=== PATIENT | female | born 1980 | race Caucasian/White ===

== ENCOUNTER 2024-08-18 08:02 | Emergency (ER) | payer OTHER, SELFPAY ==
[2024-08-18 08:04] VITALS: BP 151/106
[2024-08-18 08:18] VITALS: BP 155/96
[2024-08-18 08:19] VITALS: BMI 24.8
--- NOTE | 2024-08-18 08:23 | ED.GENMED ---
History of Present Illness
General
Chief Complaint: Chest Problem
Time Seen by Provider: 08/18/24 08:10
History of Present Illness
History of Present Illness:
43-year-old otherwise healthy female presents to the emergency department for evaluation of chest pain beginning yesterday. Pain is described as an aching pressure to the central chest, nonradiating. Seems to be worse when supine or when exerting
herself. Also pleuritic in nature. Is not radiate to the back of the shoulders. No associated fevers or chills. Notes that approximate 2 weeks ago she dealt with URI symptoms that have mostly resolved with the exception of a mild dry cough.
Denies any recent prolonged immobilization or surgeries. Does not take any exogenous estrogen.
Review of Systems
Review of Systems
Allergies reviewed?: Yes
All Other Systems: ROS reviewed and negative except as documented in HPI and ROS
Phy Exam
Physical Exam
Physical Exam:
GEN: Well appearing, NAD, WDWN
HEENT: Oral mucosa moist, no scleral icterus
Cardiac: Regular rate Rhythm, no murmurs
Lung: No respiratory distress, no tachypnea, Lungs clear to auscultation bilaterally
MSK: No gross deformity or injuries
Skin: Good color, no pallor or jaundice, no rashes
Neuro: AO x3, moves all extremities freely
Psych: Calm, cooperative
Course
Orders/Labs/Results
Orders:
Orders
08/18/24 08:06
ECG [Electrocardiogram (*1)] Urgent
Reason for Study: Chest Pain
EKG- Treatment ONCE
08/18/24 08:26
Complete Blood Count/With Diff Urgent
Comprehensive Metabolic Panel Urgent
D-Dimer Urgent
HCG, Serum Qualitative Screen Urgent
Comment: ADD ON
Troponin I Urgent
08/18/24 08:33
Add On- LAB Urgent
Tests Added?: hcg qual
08/18/24 09:46
Ketorolac [Toradol] 15 mg IV NOW STA
CR Chest - 2 Views Urgent
Comment:
Reason For Exam: chest pain
Abnormal Lab Results
08/18/24
08:26
MCH 32.5 H pg
(27.0-31.0)
RDW 11.2 L %
(11.5-14.5)
08/18/24 08:26
08/18/24 08:26
Vital Signs
Initial and Last Documented VS:
Initial Vital Signs
Temp Pulse Resp BP Pulse Ox
98.0 F 90 16 151/106 95
08/18/24 08:04 08/18/24 08:04 08/18/24 08:04 08/18/24 08:04 08/18/24 08:04
Last Documented Vital Signs
Temp Pulse Resp BP Pulse Ox
98.0 F 75 19 123/97 97
08/18/24 08:04 08/18/24 10:11 08/18/24 10:11 08/18/24 10:11 08/18/24 10:11
MDM/Problems Addressed
MDM/Problems Addressed:
Patient's workup is reassuring although her EKG is abnormal with no priors for comparison. D-dimer and troponin are negative. Do not suspect ACS given her age and lack of risk factors. D-dimer reassuring against PE. Her symptoms did improve with
NSAID administration thus this may be a pleurisy versus costochondritis in the setting of recent viral URI. Discussed supportive care
Comment
Comment:
EKG independently interpreted by me shows normal sinus rhythm at a rate of 77 with inferior and high lateral ST depressions as well as T wave inversions in the high lateral leads, no priors for comparison
*Critical Care Note
Total Time (30-74mins, 75-104mins- exclusive of procedures): Not Applicable
ED Attending Note
-
Portions of this chart may have been created with voice recognition software.� Occasional wrong word or��sound alike� substitutions may have occurred due to the inherent limitations of voice recognition software.
Discharge Plan
Departure
Patient Disposition: Home (Routine Discharge)
Date of Disposition: 08/18/24
Time of Disposition: 10:09
Patient with high blood pressure during this ER visit?: No
Discharge Problem:
Atypical chest pain
Instructions: Chest Pain PCP Follow Up
Referrals:
Hazel Aguillon DO [Family Provider] -
Activity Restrictions/Additional Instructions:
As we discussed your EKG is abnormal however we have no prior EKGs for comparison. Please consider following up with your primary care physician or a event specialist product demonstrator to discuss this further
Interventions
Interventions:
*Risk Screen - Suicide Last Done: 08/18/24 10:22
*General Assessment Last Done: 08/18/24 08:19
*Neglect/Abuse Screening Last Done: 08/18/24 10:22
*ED- Fall Risk Assessment Last Done: 08/18/24 08:19
*ED COVID-19 Vaccine History Last Done: 08/18/24 08:19
*Nursing Disposition Last Done: 08/18/24 10:22
ED- Cardiac Assessment Last Done: 08/18/24 08:19
ED- Pulmonary Assessment Last Done: 08/18/24 08:19
Discharge Date and Time
Discharge Date/Time: 08/18/24 10:23
Print Language: DOMINICAN
[2024-08-18 08:38] LABS: % Basophils 0.6 % (0-2); % Immature Granulocytes 0.4 % (0-0.5); % Lymphocytes 30.9 % (20.5-51.1); % Monocytes 8.5 % (1.7-9.3); % Neutrophils 57.6 % (42.2-75.2); Absolute Eosinophils 0.1 10^3/uL (0-0.7); Absolute Lymphocytes 2.1 10^3/uL (1.2-3.4); Absolute Monocytes 0.6 10^3/uL (0.1-0.6); Absolute Neutrophils 3.9 10^3/uL (1.4-6.5); Hematocrit 40.7 % (37.0-47.0); Hemoglobin 14.3 g/dL (12.0-16.0); Mean Corp Hgb Conc. 35.1 g/dL (33.0-37.0); Mean Corpuscular Hgb 32.5 pg (27.0-31.0); Mean Corpuscular Volume 92.5 fL (81.0-99.0); Mean Platelet Volume 10.1 fL (7.4-10.4); Nucleated Red Blood Cells % 0 %; Platelet Count 284 10^3/uL (130-400); Red Cell Dist. Width 11.2 % (11.5-14.5); White Blood Cell Count 6.8 10^3/uL (4.8-10.8)
[2024-08-18 08:50] LABS: D-Dimer 0.46 ug/mlFEU (0.00-0.50)
[2024-08-18 08:51] LABS: ALT (SGPT) 16 U/L (0-35); AST (SGOT) 19 U/L (14-36); Albumin 4.5 g/dl (3.5-5.0); Alkaline Phosphatase 71 U/L (38-126); Blood Urea Nitrogen 8 mg/dl (7-17); Calcium 9.4 mg/dl (8.4-10.2); Carbon Dioxide 23 mmol/L (22-30); Chloride 106 mmol/L (98-107); Estimated Creatinine Clearance 102 ml/min; Glucose 85 mg/dl (70-99); Potassium 3.6 mmol/L (3.5-5.1); Sodium 141 mmol/L (135-145); Total Bilirubin 0.7 mg/dl (0.2-1.3); Total Protein 7.1 g/dl (6.3-8.2); eGFR > 60.00
[2024-08-18 09:00] VITALS: BP 134/120
[2024-08-18 09:01] LABS: Troponin I < 0.012 ng/ml
[2024-08-18 09:02] LABS: HCG, Serum Qualitative Screen Negative
[2024-08-18] MEDS: TORADOL 15 MG IV (10:05)
[2024-08-18 10:11] VITALS: BP 123/97
== END 2024-08-18 10:23 | disposition home or self-care (01) ==
LOC: EMR 08:02
PROVIDERS: Physician Assistant; EMERGENCY PHYSICIAN Emergency Medicine; FAMILY PHYSICIAN Family Medicine
DX: R07.89 Other chest pain (principal); R05.9 Cough, unspecified
CPT/HCPCS: 99284; 96374; 71046; 80053; 84484; 84703; 85025; 85379; 93005

== ENCOUNTER → 2025-01-21 07:49 | Outpatient (REF) | payer OTHER, SELFPAY | LOC: HWRAD 07:49 | PROVIDERS: FAMILY PHYSICIAN Family Medicine; REFERRING PHYSICIAN Obstetrics & Gynecology | DX: N93.9 Abnormal uterine and vaginal bleeding, unspecified (principal) | CPT/HCPCS: 76830; 76856 ==